=== PATIENT | male | born 1985 | race Caucasian/White ===

== ENCOUNTER 2020-10-27 09:59 | Day surgery (SDC) | payer SELFPAY ==
[2020-10-27] VITALS (29 sets, daily range): BP systolic 104–169; BP diastolic 60–89; PULSE 71–106; RESP 12–26; TEMP 36.1–36.9; O2SAT 94–100
--- NOTE | ~2020-10-27 | CT_ITS ---
EXAMINATION: CT abdomen pelvis w con INDICATION: Right flank pain TECHNIQUE: Computed tomographic images of the abdomen and pelvis were obtained after the administrati on of 100 cc of Omnipaque 350 intravenous contrast. The dose-length product (DLP) was 883.37 mGy-cm. Automated exposure control and iterative reconstruction technique were employed. COMPARISON: 06/12/2009 FINDINGS: Minimal dependent atelectasis is present in the lung bases. The heart size is normal. The l iver, spleen, pancreas, gallbladder, and adrenal glands are normal. The left kidney is unremarkable. There is a 5 mm stone of the distal right ureter which causes mild right hydroureteronephrosis. There is decreased perfusion of the right kidney compared to the left and a small amount of perinephric fa t stranding. No pathologically enlarged abdominal or pelvic lymph nodes are identified. The appendix is normal. Again noted is fusion of the sacroiliac joints. A fat-containing umbilical hernia is noted . IMPRESSION: 1. 5 mm stone of the distal right ureter causing mild right hydronephrosis. Patchy perfusion of the r ight kidney and surrounding perinephric edema could reflect superimposed pyelonephritis. Reviewed, dictated and finalized at location A. IMPRESSION: 1. 5 mm stone of the distal right ureter causing mild right hydronephrosis. Pat sarai perfusion of the right kidney and surrounding perinephric edema could refle ct superimposed pyelonephritis.
--- NOTE | ~2020-10-27 | XR_ITS ---
EXAMINATION: XR retrograde pyelo w/stent RT DATE: 10/27/2020 15:45 INDICATION: Right internal ureteral stent placement TECHNIQUE: Fluoroscopic images from a right stent placement are submitted for review. 21 seconds of f luoroscopy time. 3 fluoroscopic images. FINDINGS: There is a right double-J internal ureteral stent projecting in expected position, with proximal [place] loop at the level of the renal pelvis and distal loop in the pelvis within the bladder lumen. IMPRESSION: 1. Right internal ureteral stent placement. Please refer to real-time procedural findings for jesi thrasher. Reviewed, dictated and finalized at location B. IMPRESSION: 1. Right internal ureteral stent placement. Please refer to real-time procedu ral findings for details.
--- NOTE | ~2020-10-27 | XR_ITS ---
EXAMINATION: XR abdomen/kub 1V INDICATION: Right ureteral stone TECHNIQUE: Supine views of the abdomen were obtained on 2 radiographs. COMPARISON: CT from today FINDINGS: There is mild right hydroureteronephrosis which continues to the right pelvis. Contrast fro m earlier CT opacifies the right ureter in the bladder and obscures the known distal ureteral stone. The bowel gas pattern is normal. IMPRESSION: 1. Mild right hydroureteronephrosis related to known right distal ureteral stone. Reviewed, dictated and finalized at location A. IMPRESSION: 1. Mild right hydroureteronephrosis related to known right distal ureteral stogayle davis
--- NOTE | 2020-10-27 10:06 | ED.ABDPAIN ---
HPI - Abdominal Pain General Chief Complaint: Abdominal Pain Stated Complaint: Kidney stone Time Seen by Provider: 10/27/20 10:03 Source: patient Mode of arrival: wheelchair Limitations: no limitations History of Present Illness HPI narrative: Patient is a 35-year-old male who presents complaining of right flank pain with sudden onset at eight thirty this a.m. Patient reports a history of kidney stones in the past. He states I had had like seventeen . He reports nausea with vomiting. He denies chest pain or shortness of breath. He denies taking over the counter medications for pain prior to arrival. MD elicited complaint: flank pain Related Data Allergies Allergy/AdvReac Type Severity Reaction Status Date / Time No Known Allergies Allergy Verified 10/27/20 15:19 Review of Systems Review of Systems: Narrative: CONSTITUTIONAL: Denies fever, chills, or sweats. EYES: Denies visual changes, redness, or discharge. ENT: Denies rhinorrhea, congestion, sore throat, or otalgia. CARDIOVASCULAR: Denies chest pain, palpitations, or edema. RESPIRATORY: Denies cough or dyspnea. GASTROINTESTINAL: Reports right flank pain with nausea and vomiting GENITOURINARY: Denies dysuria or hematuria. SKIN: Denies rash or itching. MUSCULOSKELETAL: Denies back pain, joint pain, or myalgia. NEUROLOGIC: Denies headache, numbness, dizziness, or weakness. PSYCHIATRIC: Denies anxiety or depression. [facility] Past Medical History Medical History Obesity BERNADETTE on CPAP Recurrent kidney stones Patient reports history of kidney stones Surgical History Surgical History History of orthopedic surgery Family History Family History Other No significant family history Social History Social History Smoking status: Current every day smoker Alcohol intake: current Alcohol use details: occasional Substance use: current Substance use type: marijuana Comments At the time of signature, I have reviewed and agree with nursing past medical, surgical, social, and family history unless otherwise noted. Please see nursing chart for further information. There is no relevant family history pertinent to the presenting complaint. Exam Narrative: Exam Narrative: GENERAL: Well-appearing, well-nourished, and in no acute distress. HEAD: Normocephalic, atraumatic. EYES: EOMI. No redness or drainage. Conjunctiva are normal. ENT: Mucous membranes pink and moist. CHEST: No respiratory distress. Clear to auscultation. HEART: Regular rate and rhythm. GI: Soft, nontender without rebound, or guarding. No distention. Bowel sounds normal in all quadrants. : Right CVA tenderness with palpation MUSCULOSKELETAL: No bony tenderness. EXTREMITIES: Normal range of motion. No edema. SKIN: Warm, dry, no rash. NEURO: No focal deficits. Alert and oriented x3. Gait steady. PSYCH: Normal affect. No signs of depression or anxiety. Course Consultations Consultation #1: Spoke with Dr. Stephenson at this time. He will add patient to the OR schedule for stone removal this afternoon. No antibiotics to be started at this time per Dr. Stephenson. Discussed with patient who agrees with plan of care. Date: 10/27/20 Time: 12:06 Vital Signs Vital signs: Vital Signs Temperature 36.2 C L 10/27/20 10:10 Pulse Rate 71 10/27/20 10:10 Respiratory Rate 14 10/27/20 10:10 Blood Pressure 169/69 H 10/27/20 10:10 Pulse Oximetry 99 10/27/20 10:10 Temperature 36.9 C 10/27/20 15:42 Pulse Rate 82 10/27/20 17:00 Respiratory Rate 16 10/27/20 17:00 Blood Pressure 134/70 10/27/20 17:00 Pulse Oximetry 97 10/27/20 16:21 MDM - Abdominal Pain MDM Narrative Medical decision making narrative: Discussed with Dr. Stephenson, patient to go to the OR
[2020-10-27 10:22] LABS: Basophils Percent Auto 0.3 % (0.2-1.2); Eosinophils Absolute Auto 0.2 K/mm3 (0-0.3); Eosinophils Percent Auto 1.4 % (0-4.4); Hematocrit 45.2 % (42.0-52.0); Hemoglobin 15.1 g/dL (14.0-18.0); Immature Granulocyte Absolute 0.04 K/mm3 (0.00-0.031); Immature Granulocyte Percent A 0.3 % (0-0.5); Lymphocytes Absolute Auto 1.14 K/mm3 (0.9-3.2); Lymphocytes Percent Auto 9.9 % (18.3-44.2); Mean Corpuscular HGB Conc 33.4 g/dl (32-36); Mean Corpuscular Volume 83.7 fl (80-100); Monocytes Absolute Auto 0.5 K/mm3 (0.1-0.6); Monocytes Percent Auto 4.1 % (2.6-8.5); Neutrophils Absolute Auto 9.7 K/mm3 (1.3-6.7); Platelet Count Result 207 k/mm3 (150-375); Red Cell Distribution Width 13.2 % (11.5-14.5); White Blood Count 11.5 K/mm3 (4.5-10.0)
[2020-10-27] MEDS: KETOROLAC 30 MG/ML VIAL (*BKC) IV PUSH (10:22)
[2020-10-27] MEDS: ONDANSETRON INJ 4 MG/2 ML VIAL IV PUSH (10:22)
[2020-10-27] MEDS: MORPHINE SULFATE (*CRX) 4 MG/ML INJ IV PUSH (10:22)
[2020-10-27] MEDS: SODIUM CHLORIDE 0.9% IV 1,000 ML 999 ML IV CONT (10:22)
[2020-10-27 10:31] LABS: Alanine Aminotransferase 41 U/L (4-50); Albumin Level 4.7 g/dL (3.5-5.1); Alkaline Phosphatase 96 U/L (38-126); Anion Gap 10 mmol/L (8-16); Aspartate Amino Transferase 41 U/L (17-59); Bilirubin,Total 0.7 mg/dL (0.2-1.3); Blood Urea Nitrogen 16 mg/dL (9-20); Calcium 9.6 mg/dL (8.4-10.2); Carbon Dioxide 26 mmol/L (22-30); Chloride 105 mmol/L (98-107); Estimated CRCL calculation 95 ml/min; Estimated Glomerular Filt Rate > 60; Glucose 121 mg/dL (75-110); Potassium 4.7 mmol/L (3.4-5.0); Sodium 141 mmol/L (137-145)
[2020-10-27] MEDS: HYDROmorphone HCL INJ (*CRX) 1 MG/ML SYR 0.5 MG IV PUSH ×2 (10:31→11:40)
[2020-10-27 12:31] LABS: Add Urine Microscopic? YES; Appearance Urine Clear (Clear); Bilirubin Urine Negative (Negative); Blood Urine 3+ (Negative); Color Urine Yellow (Yellow); Glucose Urine UA Negative (Negative); Ketones Urine Negative (Negative); Leukocyte Esterase Ur Negative LEU/UL (Negative); Nitrate Urine Negative (Negative); Protein Urine Negative (Negative); RBC Urine 51-75 /hpf (0-2); Specific Grav Ur > 1.060 (1.001-1.035); Urobilinogen Urine Negative mg/dL (<2.0)
--- NOTE | 2020-10-27 13:09 | WPDURCON ---
Assessment and Plan Assessment and plan (1) Right ureteral stone: Code(s): N20.1 - Calculus of ureter Status: Acute Assessment and Plan: Plan to go to the OR today: Cystoscopy, right ureteroscopy with stone extraction, possible right stent placement, possible retrograde pyelogram, possible holmium laser. Obtain consent. keep NPO. Urology Consult Note HPI Date Seen: 10/27/20 Primary Care Provider: PHYSICIAN NOT ON STAFF Consult Narrative Narrative: Gui Dong is a 35 year old male who presented to the ER today with right flank pain that radiates to the right lower quadrant, accompanied by vomiting, dysuria, frequency and urgency. He has a history of kidney stones which have all passed spontaneously. He has a WBC of 11.8 and creatinine is 1.20. CT abdomen/pelvis shows a right 5mm distal ureteral stone with hydronephrosis. He is afebrile and urine doesn't appear to show infection. Review of Systems Cardiovascular: Cardiovascular: Denies chest pain Respiratory: Respiratory: Denies no additional respiratory complaints Gastrointestinal: Gastrointestinal: Reports abdominal pain, Reports nausea and Reports vomiting Genitourinary: Genitourinary: Denies hematuria, Reports dysuria, Reports flank pain, Reports urinary frequency, Denies urinary hesitancy and Denies urinary urgency [facility] Past Medical History Medical History Recurrent kidney stones Patient reports history of kidney stones Surgical History Surgical History History of orthopedic surgery Family History Family History Other No significant family history Social History Social History Smoking status: Current every day smoker Alcohol intake: current Alcohol use details: occasional Substance use: current Substance use type: marijuana Meds Home Medications and Allergies Allergies Allergy/AdvReac Type Severity Reaction Status Date / Time No Known Allergies Allergy Verified 06/17/18 05:16 Vital Signs Vital Signs - 24 hr 10/27/20 10:10 10/27/20 10:44 10/27/20 10:45 Temperature 97.1 F L Pulse Rate 71 88 93 Respiratory Rate 14 20 20 Blood Pressure 169/69 H 120/71 Pulse Oximetry 99 98 99 10/27/20 10:46 10/27/20 11:03 10/27/20 11:25 Temperature Pulse Rate 98 100 Respiratory Rate 14 12 Blood Pressure 125/66 Pulse Oximetry 100 98 10/27/20 11:30 10/27/20 11:52 10/27/20 12:00 Temperature Pulse Rate 102 H 99 Respiratory Rate 12 23 H Blood Pressure 127/69 Pulse Oximetry 98 95 94 10/27/20 12:01 10/27/20 12:02 10/27/20 12:15 Temperature Pulse Rate 106 H 105 H 100 Respiratory Rate 17 21 H 22 H Blood Pressure 127/63 Pulse Oximetry 96 94 95 10/27/20 12:16 10/27/20 12:30 10/27/20 12:31 Temperature Pulse Rate 103 H 102 H 103 H Respiratory Rate 26 H 18 15 Blood Pressure 104/60 127/69 Pulse Oximetry 94 94 96 Exam Resp: Effort & Inspection: normal respiratory effort Cardio: Rate: regular rate GI: GI Palp: Yes Soft to palpation and Yes Tenderness to palpation present (GI) (RLQ) : General: Yes CVA tenderness on the right Extrem: General: no edema Results Labs CBC & Chem 7: 10/27/20 10:14 10/27/20 10:14 Labs: Short CBC 10/27/20 Range/Units 10:14 WBC 11.5 H (4.5-10.0) K/mm3 Hgb 15.1 (14.0-18.0) g/dL Hct 45.2 (42.0-52.0) % Plt Count 207 (150-375) k/mm3 [facility] 10/27/20 10:14 Sodium 141 Potassium 4.7 Chloride 105 Carbon Dioxide 26 BUN 16 Creatinine 1.20 Glucose 121 H Calcium 9.6 Liver Function 10/27/20 Range/Units 10:14 Total Bilirubin 0.7 (0.2-1.3) mg/dL AST 41 (17-59) U/L ALT 41 (4-50) U/L Alkaline Phosphatase 96 (38-126) U/L Albumin
[2020-10-27] MEDS: LACTATED RINGERS 1,000 ML 30 ML IV CONT ×2 (14:00→15:42)
--- NOTE | 2020-10-27 14:53 | WPDHPUPDATE1 ---
History and Physical Update Update Date/Time: 10/27/20 14:53 History and Physical has been reviewed, including an updated exam of the patient. There are NO changes in the patient's condition. Risks, benefits, and alternatives have been discussed and questions answered. Patient agrees to proceed with procedure. Proceed with cysto, right retrograde, right ureteroscopy with stone extraction, possible laser, stent placement.
--- NOTE | 2020-10-27 15:01 | WPDANESEPPF ---
Anes - Initial Pre Proc Eval Procedure: Operation Date: 10/27/20 15:45 Proposed Procedures p Cystoscopy,Right Ureteroscopy,Right Retrograde Pyelogram,Right Stone Extraction,Possible Holmium Laser,Possible Stent Placement - Halle Stephenson MD Date/Time: 10/27/20 15:01 Surgeon: Halle Stephenson MD Pre Op Diagnosis: Kidney stone Patient Data Age: 35 Gender: M Height: 1.8 m Weight: 111 kg Last Vital Signs Temp 36.2 C L 10/27/20 10:10 Pulse 103 H 10/27/20 12:31 Resp 15 10/27/20 12:31 BP 127/69 10/27/20 12:31 Pulse Ox 96 10/27/20 12:31 Allergies Allergy/AdvReac Type Severity Reaction Status Date / Time No Known Allergies Allergy Verified 06/17/18 05:16 Laboratory Tests 10/27/20 10/27/20 10/27/20 10:14 10:14 11:59 WBC 11.5 K/mm3 H K/mm3 (4.5-10.0) RBC 5.40 M/mm3 M/mm3 (4.6-6.20) Hgb 15.1 g/dL g/dL (14.0-18.0) Hct 45.2 % % (42.0-52.0) MCV 83.7 fl fl (80-100) MCH 28.0 pg pg (26-34) MCHC 33.4 g/dl g/dl (32-36) RDW 13.2 % % (11.5-14.5) Plt Count 207 k/mm3 k/mm3 (150-375) MPV 12.0 fl H fl (7.4-10.4) Immature Gran % (Auto) 0.3 % % (0-0.5) Neut % (Auto) 84.0 % H % (45.5-73.1) Lymph % (Auto) 9.9 % L % (18.3-44.2) [place] % (Auto) 4.1 % % (2.6-8.5) Eos % (Auto) 1.4 % % (0-4.4) Baso % (Auto) 0.3 % % (0.2-1.2) Lymph # (Auto) 1.14 K/mm3 K/mm3 (0.9-3.2) [place] # (Auto) 0.5 K/mm3 K/mm3 (0.1-0.6) Eos # (Auto) 0.2 K/mm3 K/mm3 (0-0.3) Baso # (Auto) 0.0 K/mm3 K/mm3 (0.0-0.1) Abs Immat Gran (auto) 0.04 K/mm3 H K/mm3 (0.00-0.031) Absolute Neuts (auto) 9.7 K/mm3 H K/mm3 (1.3-6.7) Absolute Nucleated RBC 0.0 K/mm3 K/mm3 (0.0-0.012) Nucleated RBC % 0.0 % % (0.0-0.2) Sodium 141 mmol/L mmol/L (137-145) Potassium 4.7 mmol/L mmol/L (3.4-5.0) Chloride 105 mmol/L mmol/L (98-107) Carbon Dioxide 26 mmol/L mmol/L (22-30) Anion Gap 10 mmol/L mmol/L (8-16) BUN 16 mg/dL mg/dL (9-20) Creatinine 1.20 mg/dL mg/dL (0.7-1.3) Estim Creat Clear Calc 95 ml/min ml/min Estimated GFR > 60 (59 - ) Glucose 121 mg/dL H mg/dL (75-110) Calcium 9.6 mg/dL mg/dL (8.4-10.2) Total Bilirubin 0.7 mg/dL mg/dL (0.2-1.3) AST 41 U/L U/L (17-59) ALT 41 U/L U/L (4-50) Alkaline Phosphatase 96 U/L U/L (38-126) Total Protein 8.0 g/dL g/dL (6.3-8.2) Albumin 4.7 g/dL g/dL (3.5-5.1) Urine Color Yellow (Yellow) Urine Appearance Clear (Clear) Urine pH 6.0 (5.0-9.0) Ur Specific [place] > 1.060 H (1.001-1.035) Urine Protein Negative mg/dL mg/dL (Negative) Urine Glucose (UA) Negative mg/dL mg/dL (Negative) Urine Ketones Negative mg/dL mg/dL (Negative) Ur Blood (Man) 3+ H (Negative) Urine Nitrate Negative (Negative) Urine Bilirubin Negative (Negative) Urine Urobilinogen Negative mg/dL mg/dL (<2.0) Leukocyte Esterase Rfl Negative CRYSTAL/UL CRYSTAL/UL (Negative) Urine RBC 51-75 /hpf H /hpf (0-2) Urine WBC 7-9 /hpf H /hpf Patient hx anesthesia problems: none Family hx anesthesia problems: none PMFSH Past Medical History Medical History Obesity BERNADETTE on CPAP Recurrent kidney stones Patient reports history of kidney stones Surgical History Surgical History History of orthopedic surgery Family History Family History Other No significant family history Social
[2020-10-27] MEDS: ceFAZolin 2 GM/D5W 50 ML 2 GM/50 ML BAG IVPB (15:11)
[2020-10-27] MEDS: LIDOCAINE HCL 2% GEL UROJET 10 ML PKG 7 ML MUCOUS MEM (15:30)
--- NOTE | 2020-10-27 15:41 | P.OP_ITS ---
Procedure Note - Detailed Date of Procedure 10/27/20 Pre-op Diagnosis 6 mm distal right ureteral calculus Post-op Diagnosis same Procedure Performed Cystoscopy, right retrograde pyelogram, right ureteroscopy with holmium laser, stone extraction, right ureteral stent placement 4.8 [place]gu[place] contour, meatal dilation Surgeon Gael Hassan MD Anesthesia general Description of Procedure Patient is taken the operative suite and correctly identified. Once anesthesia was obtained was placed in dorsal lithotomy position and prepped and draped in sterile fashion. Twenty-two Anguillan scope would not pass the meatus. We thus dilated using male sounds to 24 [place]gu[place]an. Twenty-two Anguillan scope was then inserted. There were no other urethral strictures. Prostate nonobstructive. Upon entering the bladder there is no tumors noted. The right ureteral orifice was cannulated with a guidewire. We dilated with an 8/10 dilator. Rigid ureteral scope was then inserted the stone was visualized. It was too large to retrieve 1 piece. Using a 273 micron fiber we fragment the stone in multiple pieces. The largest was sent for analysis. Reinspection revealed no residual stones in the distal ureter. Pyelogram was then performed to confirm placement of the stent. 4.8 [place] contour stent was then placed with the proximal end coiled in the renal pelvis and the distal in bladder. Bladder was drained. 2% viscous lidocaine was inserted urethra. Patient is taken recovery stable condition. He will follow up in a week's time for stent removal. Drains Yes Packing No Pathology yes Complications No immediate complications Condition stable Disposition PACU
[2020-10-27] MEDS: fentaNYL CITRATE INJ (*CRX) 100 MCG/2 ML VIAL 25 MCG IV PUSH ×4 (16:08→16:14)
[2020-10-27] MEDS: oxyCODONE HCL (*CRX) 5 MG TAB IR PO (17:08)
== END 2020-10-27 17:25 | disposition home or self-care (01) ==
LOC: ANHED 13:28 → ANHSURGERY 13:28
PROVIDERS: Urology; Emergency Provider Nurse Practitioner; Visit Provider Urology
PROC: (CPT 52352; principal; 2020-10-27 15:45)
DX: N13.2 Hydronephrosis with renal and ureteral calculous obstruction (principal); R11.2 Nausea with vomiting, unspecified; G47.33 Obstructive sleep apnea (adult) (pediatric); E66.9 Obesity, unspecified; Z68.34 Body mass index [BMI] 34.0-34.9, adult; F12.90 Cannabis use, unspecified, uncomplicated
CPT/HCPCS: 52356; 36415; 74018; 74177; 74420; 80053; 81001; 82365; 85025; 87086; 87088; 88300; 96361; 96374; 96375; 96376; 99285; A9270; C1769; C2617; J0690; J1170; J1885; J2250; J2270; J2405; J2704; J3010; J7030; J7120; Q9966; Q9967

== ENCOUNTER 2021-09-12 17:10 | Emergency (ER) | payer BC, SELFPAY ==
--- NOTE | ~2021-09-12 | CT_ITS ---
EXAMINATION: CT abdomen pelvis w con DATE: 09/12/2021 19:50 INDICATION: L flank/LLQ pain, Hx of kidney stones, N/V TECHNIQUE: Computed tomography (CT) of the abdomen and pelvis was performed with 100 mL Omnipaque-300 intravenous contrast. Automated exposure control and iterative reconstruction technique were employe d. The dose-length product was 1038.04 mGy-cm. COMPARISON: 10/27/2020 FINDINGS: Lower thorax: Unremarkable Liver: Normal. Biliary/Gallbladder: Gallbladder is normal. No bile duct dilation. Spleen: Normal. Pancreas: No mass or duct dilation. Adrenals:No mass. Kidneys: No mass, stone, or hydronephrosis. GI tract: No small or large bowel dilation. Normal appendix. Mesentery/Peritoneum: No ascites, mass, or free air. Retroperitoneum: No mass. Pelvis: Pelvic organs are within normal limits. Soft Tissues: Soft tissues and body wall unremarkable. Bones: No acute osseous finding. IMPRESSION: No acute abdominopelvic process. Reviewed, dictated and finalized at location K.
[2021-09-12 17:12] VITALS: BP 147/94; PULSE 93; RESP 18; TEMP 36.4; O2SAT 97
[2021-09-12 17:31] LABS: Basophils Percent Auto 0.4 % (0.2-1.2); Eosinophils Absolute Auto 0.7 K/mm3 (0-0.3); Eosinophils Percent Auto 10.1 % (0-4.4); Hematocrit 42.7 % (42.0-52.0); Hemoglobin 14.2 g/dL (14.0-18.0); Immature Granulocyte Absolute 0.02 K/mm3 (0.00-0.031); Immature Granulocyte Percent A 0.3 % (0-0.5); Lymphocytes Absolute Auto 0.74 K/mm3 (0.9-3.2); Lymphocytes Percent Auto 10.1 % (18.3-44.2); Mean Corpuscular HGB Conc 33.3 g/dl (32-36); Mean Corpuscular Hemoglobin 27.8 pg (26-34); Mean Corpuscular Volume 83.6 fl (80-100); Mean Platelet Volume 11.7 fl (7.4-10.4); Monocytes Absolute Auto 0.8 K/mm3 (0.1-0.6); Monocytes Percent Auto 10.5 % (2.6-8.5); Neutrophils Absolute Auto 5.1 K/mm3 (1.3-6.7); Neutrophils Percent Auto 68.6 % (45.5-73.1); Platelet Count Result 212 k/mm3 (150-375); Red Blood Count 5.11 M/mm3 (4.6-6.20); Red Cell Distribution Width 13.3 % (11.5-14.5); White Blood Count 7.4 K/mm3 (4.5-10.0)
[2021-09-12 17:41] LABS: Alanine Aminotransferase 26 U/L (6-50); Albumin Level 4.5 g/dL (3.5-5.1); Alkaline Phosphatase 93 U/L (38-126); Anion Gap 8 mmol/L (8-16); Aspartate Amino Transferase 25 U/L (17-59); Bilirubin,Total 0.6 mg/dL (0.2-1.3); Blood Urea Nitrogen 10 mg/dL (9-20); Calcium 8.8 mg/dL (8.4-10.2); Carbon Dioxide 27 mmol/L (22-30); Chloride 100 mmol/L (98-107); Estimated CRCL calculation 113 ml/min; Estimated Glomerular Filt Rate > 60; Glucose 107 mg/dL (65-110); Potassium 3.7 mmol/L (3.4-5.0); Sodium 135 mmol/L (137-145)
--- NOTE | 2021-09-12 19:18 | ED.ABDPAIN ---
HPI - Abdominal Pain General Chief Complaint: Abdominal Pain Stated Complaint: L FLANK PAIN, HX KIDNEY STONES Time Seen by Provider: 09/12/21 18:53 Source: patient Mode of arrival: ambulatory Limitations: no limitations History of Present Illness HPI narrative: Patient is a 36 y/o male who presents to the ED with c/o left lower quadrant abdominal pain. Patient reports a history of 20+ kidney stones in the past, most of which have passed spontaneously, one did require retrieval. He states it runs in his family but he has never had a full evaluation to determine if it is genetic or not. He does not currently follow with urologist but does see his primary care doctor about his kidney stones. He states he developed mild pain in his LLQ, radiating through to his back, this morning. Pain is stabbing. The pain became severe around 3-4 pm today. He did take 1 diclofenac at home without relief of pain. He tried eating lunch but did report vomiting this back up. He has had nausea since then but no further episodes of vomiting. He did report an episode of diarrhea this morning as well and dysuria today. No blood in the stool or urine. No fever, chills, chest pain, SOB, changes in urine volume or frequency. Related Data Allergies Allergy/AdvReac Type Severity Reaction Status Date / Time No Known Allergies Allergy Verified 10/27/20 15:19 Review of Systems Review of Systems: CONSTITUTIONAL: Denies fever, chills. CARDIOVASCULAR: Denies chest pain. RESPIRATORY: Denies dyspnea. GASTROINTESTINAL: Reports LLQ abdominal pain, radiating through to back, N/V, 1 episode of diarrhea. Denies constipation, rectal bleeding. GENITOURINARY: Reports dysuria. Denies hematuria, changes in urine frequency/volume. SKIN: Denies rash or itching. MUSCULOSKELETAL: Reports back pain, radiating from ABD. All systems reviewed & are unremarkable except as noted in HPI and below PMFSH Past Medical History Medical History (Updated 09/13/21 @ 00:00 by Hieu Lui) Obesity BERNADETTE on CPAP Recurrent kidney stones Patient reports history of kidney stones Surgical History Surgical History (Updated 09/13/21 @ 01:16 by Laurita Archer PA-C) History of cystoscopy History of orthopedic surgery Family History Family History Other No significant family history Social History Social History Smoking status: Current every day smoker Alcohol intake: current Alcohol use details: occasional Substance use: current Substance use type: marijuana Exam Narrative: GENERAL: Well-nourished, non-toxic, in mild acute distress. HEAD: Normocephalic, atraumatic. NECK: Supple. No adenopathy, no masses. RESPIRATORY: Airway patent, respirations nonlabored. Clear to auscultation bilaterally, no rales, rhonchi, wheezing. CARDIOVASCULAR: Borderline tachycardic with regular rhythm without murmurs, rubs, or gallops. Peripheral pulses 2+ and equal bilaterally. ABDOMINAL: Soft, mild tenderness to palpation in left lower quadrant, nondistended, no hepatosplenomegaly. Normoactive BS. MUSCULOSKELETAL: Moves all extremities. Strength/ROM intact without gross deformities or TTP. SKIN: Warm, dry, normal color. No rashes. NEURO: A&O X3. Speech clear. Cranial nerves II-XII grossly intact. Steady gait. No ataxic movements. PSYCHIATRIC: Appropriate mood and affect. Normal interaction. Course Vital Signs Vital signs: Vital Signs Temperature 97.6 F 09/12/21 17:12 Pulse Rate 93 09/12/21 17:12 Respiratory Rate 18 09/12/21 17:12 Blood Pressure 147/94 H 09/12/21 17:12 Pulse Oximetry 97 09/12/21 17:12 Temperature 97.6 F 09/12/21 17:12 Pulse Rate 78 09/12/21 22:23 Respiratory Rate 18 09/12/21 22:23 Blood Pressure 100/56 L 09/12/21 22:23 Pulse Oximetry 97 09/12/21 22:23 MDM - Abdominal Pain MDM Narrative Medical decision making narrative
[2021-09-12] MEDS: SODIUM CHLORIDE 0.9% IV 1,000 ML 999 ML IV CONT (19:33)
[2021-09-12] MEDS: MORPHINE SULFATE (*CRX) 4 MG/ML INJ 2 MG IV PUSH (19:34)
[2021-09-12] MEDS: ONDANSETRON INJ 4 MG/2 ML VIAL IV PUSH (19:35)
[2021-09-12 20:39] LABS: Appearance Urine Clear (Clear); Bilirubin Urine Negative (Negative); Blood Urine Negative (Negative); Color Urine Yellow (Yellow); Glucose Urine UA Negative (Negative); Ketones Urine Negative (Negative); Leukocyte Esterase Ur Negative LEU/UL (Negative); Nitrate Urine Negative (Negative); Protein Urine Negative (Negative); Urobilinogen Urine 0.2 mg/dL (<2.0)
[2021-09-12 20:42] LABS: RBC Urine 0-2 /hpf (0-2); WBC Urine 0-3 /hpf
[2021-09-12 20:52] LABS: Add Urine Microscopic? YES
[2021-09-12] MEDS: KETOROLAC 30 MG/ML VIAL (*BKC) IV PUSH (21:04)
[2021-09-12 22:00] VITALS: BP 97/59; PULSE 80; RESP 18; O2SAT 97
[2021-09-12 22:23] VITALS: BP 100/56; PULSE 78; RESP 18; O2SAT 97
== END 2021-09-12 22:24 | disposition home or self-care (01) ==
PROVIDERS: Emergency Medicine; Emergency Provider Emergency Medicine
DX: R10.32 Left lower quadrant pain (principal); G47.33 Obstructive sleep apnea (adult) (pediatric); Z87.442 Personal history of urinary calculi; E66.9 Obesity, unspecified; Z68.32 Body mass index [BMI] 32.0-32.9, adult; F17.200 Nicotine dependence, unspecified, uncomplicated
CPT/HCPCS: 36415; 74177; 80053; 81001; 85025; 96365; 96375; 99284; J0131; J1885; J2270; J2405; J7030; Q9967

== ENCOUNTER 2024-06-08 09:58 | Emergency (ER) | payer OTHER, SELFPAY ==
[2024-06-08 10:17] VITALS: BP 127/83; PULSE 90; RESP 16; TEMP 36.2; O2SAT 97
--- NOTE | 2024-06-08 10:43 | ED.URI ---
HPI - URI/Sore Throat General Chief Complaint: Upper Respiratory Infection Stated Complaint: sinus issue,congestion Time Seen by Provider: 06/08/24 10:54 Source: patient and RN notes reviewed Mode of arrival: ambulatory Limitations: no limitations History of Present Illness HPI Narrative: 38-year-old male presents with concern for sinus pressure, congestion, drainage for many weeks. He has tried multiple jilp-gup-prqildc medications without relief. Reports occasional cough. Denies fever. MD elicited complaint: cough and sore throat Related Data Home Medications ?Medication ?Instructions ?Recorded ?Confirmed ?Last Taken ?Type cyclobenzaprine 10 mg tablet 10 mg PO Q8H PRN muscle spasm 06/08/24 06/08/24 Unknown History diclofenac sodium 75 mg 75 mg PO TID 06/08/24 06/08/24 Unknown History tablet,delayed release trazodone 100 mg tablet 200 mg PO HS 06/08/24 06/08/24 Unknown History Allergies Allergy/AdvReac Type Severity Reaction Status Date / Time codeine AdvReac Intermediate Nausea Verified 06/08/24 10:48 tizanidine AdvReac Intermediate Hallucinati Verified 06/08/24 10:48 ng Review of Systems Review of Systems: CONSTITUTIONAL: Denies malaise, chills, sweats, or fever. EYES: Denies visual changes, redness, or discharge. ENT: Reports rhinorrhea, congestion, sinus pain CARDIOVASCULAR: Denies chest pain, palpitations, or edema. RESPIRATORY: Reports occasional cough. Denies dyspnea. GASTROINTESTINAL: Denies abdominal pain, nausea, vomiting, diarrhea SKIN: Denies rash or itching. MUSCULOSKELETAL: Denies myalgia. NEUROLOGIC: Denies headache. All systems reviewed & are unremarkable except as noted in HPI and below PMFSH Past Medical History Medical History (Updated 06/08/24 @ 11:02 by Lorraine Chung NP) Obesity BERNADETTE on CPAP Recurrent kidney stones Patient reports history of kidney stones Surgical History Surgical History (Updated 09/13/21 @ 01:16 by Laurita Quintero PA-C) History of cystoscopy History of orthopedic surgery Family History Family History Other No significant family history Social History Social History Smoking status: Current every day smoker Alcohol intake: current Alcohol use details: occasional Substance use: current Substance use type: marijuana Comments At time of signature, agree with nursing past medical, surgical, social and family history. There is no relevant family history pertinent to the presenting complaint Exam Narrative: GENERAL: Well-appearing, well-nourished, and in no acute distress. HEAD: Normocephalic EYES: PERRLA, conjunctivae clear ENT: Nares clear, turbinates edematous and erythematous. Mucous membranes moist. TM pearly pat with dull light reflex bilaterally; no tragal tenderness. Oropharynx not erythematous without lesions. Tonsils not enlarged and without exudate, no drooling, no hoarseness, no trismus, uvula midline. NECK: Supple. No lymphadenopathy CHEST: Clear to auscultation, breath sounds equal. No wheezing, rhonchi, rales, or stridor. No respiratory distress, speaks in full sentences. HEART: Regular rate and rhythm. No murmur heard. SKIN: Warm, dry, no rash. NEURO: Alert and oriented x3. PSYCH: Normal mood and affect Course Course Emergency Course: Patient is aware of diagnosis, understands and agrees to treatment plan. Anticipatory guidance given. Patient agrees to follow-up as directed and is aware of reasons to seek care at the emergency department. Portions of this record may have been created with voice recognition software Level of Care: Express Care Visit Vital Signs Vital signs: Vital Signs Temperature 97.2 F L 06/08/24 10:17 Pulse Rate 90 06/08/24 10:17 Respiratory Rate 16 06/08/24 10:17 Blood Pressure 127/83 06/08/24 10:17 Pulse Oximetry 97 06/08/24 10:17 Oxygen Delivery Room Air 06/08/24 10:17 Temperature 97.2 F L 06/08/24 10:17 Pulse Rate 90 06/08/24 10:17 Respiratory Rate 16 06/08/24 10:17 Blood Pressure 127/83 06/08/24 10:17 Pulse Oximetry 97 06/08/24 10:17 Oxygen Delivery Room Air 06/08/24 10:17 Reviewed. MDM - URI/Sore Throat MDM Narrative Medical decision making narrative: Differential diagnosis considered: Montiel virus, strep pharyngitis, allergic rhinitis, upper respiratory tract infection, sinusitis, rhinosinusitis, nasopharyngitis. viral pharyngitis, otitis media, otitis externa, pneumonia, bronchitis, viral cough syndrome, viral syndrome, and influenza. Exam findings show no acute concerns or changes; patient is non-toxic appearing and is in no distress. Patient is appropriate for outpatient treatment and follow-up. Lab Data Attestation: I reviewed the patient's lab results. Critical Care Time Critical Care Time Critical Care Time: No Discharge Plan Discharge Clinical Impression: Acute bacterial sinusitis Patient Disposition: Home, Self-Care Condition: Stable Instructions: Antibiotic Form, Sinusitis (ED) Additional Instructions: Take medication as prescribed Nonprescription pain medications, such as acetaminophen (eg, Tylenol) or ibuprofen (eg, Motrin, Advil), are recommended for pain. Flushing the nose and sinuses with a saline solution several times per day has been proven to decrease pain associated with congestion and shorten the duration of symptoms. Nasal steroids (such as Flonase, 2 sprays in each nostril daily) can help to reduce swelling inside the nose, usually within two to three days. These drugs have few side effects and relieve symptoms in most people. Oral decongestants (pseudoephedrine and phenylephrine) may be helpful if you have associated symptoms of ear pain or fullness. Nasal decongestant sprays, including oxymetazoline (Afrin) and phenylephrine (Burke-Synephrine) should not be used for more than two to three days due to the risk of rebound congestion (when the nose becomes congested constantly unless the medication is used repeatedly), possible addiction, and long-term consequences of frequent use, including persistent nasal dryness and crusting, which is very difficult to treat once it has developed. Medications to thin secretions (such as guaifenesin) may help to clear mucus. Please follow-up with your primary care doctor in the next 1-2 days. If you cannot follow-up with your primary care doctor please go to the ED for any urgent issues. If you have any worsening of symptoms or any other concerns please go to the ED immediately. Patient Language: Gambian Prescriptions: New methylprednisolone [Medrol (Rao)] 4 mg tablets,dose pack See Rx Instructions .ROUTE .COMPLEX Qty: 21 0RF Rx Instructions: orally per package directions amoxicillin-pot clavulanate 875-125 mg tablet 1 tablet PO Q12H 10 Days Qty: 20 0RF No Action cyclobenzaprine 10 mg tablet 10 mg PO Q8H PRN (Reason: muscle spasm) diclofenac sodium 75 mg tablet,delayed release (DR/EC) 75 mg PO TID trazodone 100 mg tablet 200 mg PO HS Follow-up/Referrals: PHYSICIAN NOT ON STAFF,NONSTAFF [Primary Care Provider] - Stand Alone Forms: Work/School Release IP Time of Disposition: 11:03
== END 2024-06-08 11:09 | disposition home or self-care (01) ==
PROVIDERS: Emergency Provider Nurse Practitioner
DX: J01.80 Other acute sinusitis (principal); B96.89 Other specified bacterial agents as the cause of diseases classified elsewhere; G47.33 Obstructive sleep apnea (adult) (pediatric); Z99.89 Dependence on other enabling machines and devices; F17.210 Nicotine dependence, cigarettes, uncomplicated
CPT/HCPCS: 99213; G0463